=== PATIENT | female | born 1975 | race Caucasian/White ===

== ENCOUNTER 2021-10-03 19:05 | Emergency (ER) | payer OTHER ==
[2021-10-03 21:15] LABS: BASOPHIL 0.3 % (0-2); BILIRUBIN NEGATIVE (NEGATIVE); BLOOD 3+ Ery/uL (NEGATIVE); CLARITY CLEAR (CLEAR); COLOR YELLOW (YELLOW); EOSINOPHIL 0 % (0-5); GLUCOSE (U) NORMAL (NORMAL); HCT 44.4 % (37.0-47.0); HGB 15.3 g/dl (12.5-16.0); LEUKOCYTES TRACE Leu/uL (NEGATIVE); LYMPHOCYTE 4.6 % (15-48); MCH 29.4 pg (25.0-31.0); MCHC 34.5 g/dL (32.0-36.0); MCV 85.4 fL (78.0-100.0); MPV 11.5 fL (6.0-9.5); NEUTROPHIL 92.8 % (41-80); NITRITE NEGATIVE (NEGATIVE); NRBC 0; PLT 234 K/uL (150-400); PROTEIN TRACE (LOW) mg/dL (NEGATIVE); RDW 12.5 % (11.5-14.0); UROBILINOGEN 0.2 mg/dL (0.2-1.0); WBC 15.7 K/uL (4.0-10.5)
[2021-10-03 21:28] LABS: AMORPHOUS URATES CRYSTALS MODERATE; BACTERIA 2+; URINARY RBC 20-50
[2021-10-03 21:30] LABS: ALBUMIN 4.3 g/dL (3.4-5.0); BILIRUBIN - TOTAL 0.5 mg/dL (0.2-1.0); BUN/CREAT RATIO (CALC) 16.7 RATIO; CREATININE 0.78 mg/dL (0.51-0.95); GLOBULIN (CALCULATION) 3.9 g/dL; POTASSIUM 3.9 mmol/L (3.5-5.1); TOTAL PROTEIN 8.2 g/dL (6.4-8.2)
[2021-10-03] MEDS ORDERED: NORCO 5-325 TA1 EACH PO (22:44)
[2021-10-03] MEDS ORDERED: ONDANSETRON HCL4 MG PO (22:44)
[2021-10-03] MEDS ORDERED: FLOMAX 0.4 MG0.4 MG PO (22:44)
[2021-10-03] MEDS ORDERED: BACTRIM DS TAB1 EACH PO (22:44)
== END 2021-10-04 00:08 | disposition home or self-care (01) ==
LOC: FER 19:05
PROVIDERS: Nurse Practitioner Family
DX: N13.6 Pyonephrosis (principal)
CPT/HCPCS: 36415; 80053; 81001; 85025; J0696; J1885; J2405; J7030